=== PATIENT | female | born 1975 | race Caucasian/White ===

== ENCOUNTER 2016-08-18 18:08 | Emergency (ER) | payer MEDICAID ==
[2016-08-18 18:45] VITALS: BP 125/87
[2016-08-18] MEDS ORDERED: MOTRIN PO ONE (20:46)
--- NOTE | 2016-08-18 20:49 | Emergency Department Report ---
Chief Complaint: Abdominal Pain Stated Complaint: PELVIC PAIN/SHOULDER PAIN Time Seen by Provider: 08/18/16 20:44 - HPI History of Present Illness: 41-year-old female comes in for pain and shoulders [place], lower abdominal and lower back pain. The pain has been present for 2 days. She admits to nausea no vomiting. Status post hysterectomy 13 years ago. - Exam Vital Signs: Vital Signs 08/18/16 18:38 Temperature 98.4 F Pulse Rate 87 Respiratory 18 Rate Blood Pressure 125/87 O2 Sat by Pulse 100 Oximetry Physical Exam: Patient is alert and oriented 3. Cardiovascular S1-S2 regular rate and rhythm respiratory clear to auscultation bilateral abdomen soft there's tenderness in the left lower quadrant. Tenderness to the trapeze bilateral MSE screening note: Focused history and physical exam performed. Due to findings the following was ordered: Urinalysis ordered. Ibuprofen 800 mg 1 tablet by mouth now patient be evaluated in the main ER ED Disposition for MSE Condition: Stable Instructions: Abdominal Pain (ED) Referrals: PRIMARY CARE [Primary Care Provider] - 3-5 Days
[2016-08-18 23:54] LABS: Bilirubin,Urine NEG (Negative); Blood,Urine NEG (Negative); Ketones,Urine NEG (Negative); Leukocyte Esterase,Urine NEG (Negative); Mucus,Urine FEW /HPF; Nitrite,Urine NEG (Negative); Protein,Urine <15 mg/dL mg/dL (Negative); Urobilinogen,Urine < 2.0 mg/dL (<2.0)
--- NOTE | 2016-08-20 07:32 | ED Elopement Review ---
ED Pt Elopement review - Results review Lab results: Laboratory Tests 08/18/16 Unknown Urine Color Yellow Urine Turbidity Slightly-cloudy Urine pH 6.0 Ur Specific [place] 1.017 Urine Protein <15 mg/dl Urine Glucose (UA) Neg Urine Ketones Neg Urine Blood Neg Urine Nitrite Neg Urine Bilirubin Neg Urine Urobilinogen < 2.0 Ur Leukocyte Esterase Neg Urine WBC (Auto) 3.0 Urine RBC (Auto) 5.0 U Epithel Cells (Auto) 1.0 Urine Mucus Few - Call Back decision Pt Call Back Decision: No action required
== END 2016-08-18 21:00 | disposition left against medical advice (07) ==
LOC: ED 18:08
DX: R10.32 Left lower quadrant pain (principal); M54.5 Low back pain; R11.0 Nausea; M25.519 Pain in unspecified shoulder; Z53.21 Procedure and treatment not carried out due to patient leaving prior to being seen by health care provider
CPT/HCPCS: 81001